=== PATIENT | male | born 1960 | race Caucasian/White ===

== ENCOUNTER → 2024-06-13 | Outpatient (CLI) | payer OTHER ==
[~2024-06-13] MED LIST: HTN MEDS; HYDACE5 PO; MELA3 PO; ONDA4ODT MM; RXHYD5325 PO; SIMV10 PO; TAMS.4ER PO; TRIHYD253A PO; [UNRECOGNIZED DRUG - REMARK]
== END ==
LOC: LAB 12:05 → LAB SHORT 12:05
DX: N39.0 Urinary tract infection, site not specified (principal)
CPT/HCPCS: 87086

== ENCOUNTER 2024-07-12 06:10 | Day surgery (SDC) | payer OTHER ==
[~2024-07-12] VITALS: Ht 180.3 cm; Wt 178.8 kg
[2024-07-12] MEDS ORDERED: VALS80 (07:01)
[2024-07-12] MEDS ORDERED: OMEP20ER (07:04)
[2024-07-12] MEDS ORDERED: Lactated Ringer's 1,000 ML IV ONE ×2 (07:41→07:43)
[2024-07-12] MEDS ORDERED: propofoL 40 ML IV ONE (07:41)
== END 2024-07-12 08:48 | disposition home or self-care (01) ==
LOC: ORSCSDS 06:10
PROVIDERS: Surgery
PROC: 0DBK8ZX Excision of Ascending Colon, Via Natural or Artificial Opening Endoscopic, Diagnostic (ICD-10-PCS; principal; 2024-07-12 08:00)
PROC: 0DBM8ZX Excision of Descending Colon, Via Natural or Artificial Opening Endoscopic, Diagnostic (ICD-10-PCS; principal; 2024-07-12 08:00)
DX: Z12.11 Encounter for screening for malignant neoplasm of colon (principal); Z83.719 Family history of colon polyps, unspecified; D12.4 Benign neoplasm of descending colon; K63.5 Polyp of colon; M06.9 Rheumatoid arthritis, unspecified; I10 Essential (primary) hypertension; E78.00 Pure hypercholesterolemia, unspecified; Z71.3 Dietary counseling and surveillance; F17.210 Nicotine dependence, cigarettes, uncomplicated; Z79.899 Other long term (current) drug therapy
CPT/HCPCS: J2704; J7120

== ENCOUNTER → 2024-07-14 | Outpatient (CLI) | payer OTHER ==
[~2024-07-14] MED LIST changes: +OMEP20ER; +VALS80
[2024-07-16 15:08] LABS: Protein, Urine Quantitative 31.9 mg/dL (0.0-11.9)
[2024-07-16 15:30] LABS: Uric Acid, Urine 22.4 mg/dL (7.5-49.5)
[2024-07-16 15:35] LABS: Creatinine, Urine Random 81.5 mg/dL (27.00-270.00)
[2024-07-16 15:38] LABS: Phosphorus, Urine 34.5 mg/dL (20.0-60.0)
[2024-07-16 15:55] LABS: Microalb/Creat Ratio UR, Rand 274.847 mg/g (0.000-30.000)
[2024-07-16 16:14] LABS: Calcium, Urine 6.6 mg/dL (< 17.5)
== END ==
LOC: LAB SHORT 18:52 → LAB 18:52
PROVIDERS: Internal Medicine Nephrology
DX: N18.2 Chronic kidney disease, stage 2 (mild) (principal); D75.1 Secondary polycythemia; N25.81 Secondary hyperparathyroidism of renal origin; E78.00 Pure hypercholesterolemia, unspecified; R76.9 Abnormal immunological finding in serum, unspecified
CPT/HCPCS: 82043; 82340; 82507; 82570; 84105; 84133; 84156; 84300; 84560

== ENCOUNTER 2024-07-18 15:47 | Emergency (ER) | payer OTHER ==
[~2024-07-18] VITALS: Ht 180.3 cm; Wt 83.9 kg
[2024-07-18 17:16] LABS: BASOPHILS ABSOLUTE AUTO 0.07 K/mm3 (0.00-0.23); BASOPHILS PERCENT AUTO 1 % (0-2); EOSINOPHILS ABSOLUTE AUTO 0.13 K/mm3 (0.00-0.68); EOSINOPHILS PERCENT AUTO 1 % (0-6); Hemoglobin 13.9 g/dL (13.5-17.5); IMMATURE GRAN ABSOLUTE AUTO 0.03 K/mm3 (0.00-0.10); IMMATURE GRAN PERCENT AUTO 0 % (0-1); LYMPHOCYTES ABSOLUTE AUTO 1.53 K/mm3 (0.84-5.20); LYMPHOCYTES PERCENT AUTO 12 % (21-46); MONOCYTES ABSOLUTE AUTO 0.91 K/mm3 (0.16-1.47); MONOCYTES PERCENT AUTO 7 % (4-13); Mean Corpuscular HGB 32.5 pg (26.0-34.0); Mean Corpuscular HGB Conc 33.9 g/dL (31.5-36.5); Mean Corpuscular Volume 96 fL (80-100); Mean Platelet Volume 9.3 fL (9.1-12.4); NEUTROPHILS ABSOLUTE AUTO 9.82 K/mm3 (1.96-9.15); NEUTROPHILS PERCENT AUTO 79 % (41-73); Platelet Count 343 K/mm3 (150-400); RDW Coefficient Variation 11.8 % (11.7-14.2); RDW Standard Deviation 41.2 fL (35.1-46.3); Red Blood Cell Count 4.28 M/mm3 (4.30-5.90); White Blood Cell Count 12.49 K/mm3 (4.00-11.30)
[2024-07-18 17:32] LABS: Magnesium, Blood 1.6 mg/dL (1.6-2.4)
[2024-07-18 17:33] LABS: Albumin, Blood 3.5 g/dL (3.4-5.0); Albumin/Globulin Ratio 0.8 (0.8-1.8); Bilirubin, Total 0.7 mg/dL (0.1-1.0); Bun/Creatinine Ratio 22.9 (12.0-20.0); Calcium, Blood 10.7 mg/dL (8.5-10.1); Creatinine, Blood 0.7 mg/dL (0.60-1.20); Globulin, Blood 4.2 g/dL (2.2-4.0); Phosphorus, Blood 2.8 mg/dL (2.5-4.9); Total Protein, Blood 7.7 g/dL (6.4-8.2)
== END 2024-07-18 20:20 | disposition home or self-care (01) ==
LOC: ER 15:47
PROVIDERS: Physician Assistant
DX: R55 Syncope and collapse (principal); E16.2 Hypoglycemia, unspecified; Z87.442 Personal history of urinary calculi; Z88.8 Allergy status to other drugs, medicaments and biological substances; Z79.899 Other long term (current) drug therapy
CPT/HCPCS: 70450; 80053; 83735; 84100; 85025; 93005; 93010; 99284-25